=== PATIENT | male | born 1990 | race Caucasian/White ===

== ENCOUNTER 2018-08-19 10:06 | Emergency (ER) | payer OTHER ==
[~2018-08-19] VITALS: Ht 180.3 cm; Wt 70.0 kg
[~2018-08-19 10:06] MED LIST: HYDR-3237 PO
--- NOTE | 2018-08-19 11:30 | NUR ---
PT TO ED FOR WORK RELEASE FOLLOWING SEIZURE 2 DAYS AGO. PT STATES HE WAS SITTING ON THE BED AND WOKE UP LAYING DOWN WITH VERY SCARED AND UPSET. PT REPORTS INCONTINENT OF URINE AT THAT TIME. PT STATES VERY VAGUE MEMORY OF EVENT. PT STATES HX OF SEIZURE IN HOSPITAL FOLLOWING INTENTIONAL OVERDOSE WITH MORPHINE, SLEEPING PILLS AND ALCOHOL. CONNECTED TO MONITORS. VSS. MD TO BEDSIDE FOR ASSESSMENT. AWAITING ORDERS AT THIS TIME.
--- NOTE | 2018-08-19 12:06 | NUR ---
REPORT TAKEN FROM GUSTAVO NOLAND, ASSUMING CARE AT THIS TIME.
[2018-08-19] MEDS ORDERED: CHLORDIAZEPOXIDE 25 MG CAPSULE PO PRN (13:00)
[2018-08-19] MEDS ORDERED: CHLORDIAZEPOXIDE 25 MG CAPSULE ONE (13:09)
[2018-08-19 13:12] VITALS: BP 138/92
--- NOTE | 2018-08-19 13:18 | NUR ---
pt medicated per emar, tolerated well. pt given dc instructions and script. pt educated regarding librium rx. pt educated not to drive today d/t med given. pt a&o, resps even and unlabored, nadn at this time. pt amb to dc desk with steady gait.
== END 2018-08-19 13:18 | disposition home or self-care (01) ==
LOC: ED 13:07
DX: R56.9 Unspecified convulsions (principal); F10.10 Alcohol abuse, uncomplicated; F17.200 Nicotine dependence, unspecified, uncomplicated
CPT/HCPCS: 99283

== ENCOUNTER 2020-05-29 10:05 | Emergency (ER) | payer SELFPAY ==
[~2020-05-29] VITALS: Ht 180.3 cm; Wt 73.0 kg
--- NOTE | 2020-05-29 10:10 | NUR ---
pt BIB [facility] from home c/o RUQ pain with s/o N/v today. pt reports that he has a hx of "liver problems" but does not know what that means. pt R arm is shaking upon admit and pt states that he is shaking from the pain. pt was medicated with 4mg zofran [employer] and refused any narcotric pain meds as he is in recovery for narcotic abuse. pt is in no resp. distress. no family at bedside
--- NOTE | 2020-05-29 10:15 | NUR ---
pt admits to heavy daily ETOH abuse, and that he is trying to "wean himself down". pt reports that he was drinking a "fifth a day" previously and has worked his way down to a pint of ETOH per day and a few beers. pt reports that his last ETOh drink was last nocs Yogesh GEORGE has been to bedside for eval pt is currently refusing ativan at this time
--- NOTE | 2020-05-29 10:20 | NUR ---
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
[2020-05-29 10:28] LABS: BASOPHILS % (AUTO) 0 % (0-1); EOSINOPHILS % (AUTO) 0 % (1-7); LYMPHOCYTES % (AUTO) 8 % (22-44); MEAN CORPUSCULAR HEMOGLOBIN 33.5 pg (27.5-34.5); MEAN CORPUSCULAR HGB CONC 33.9 g/dL (33.2-36.2); MEAN PLATELET VOLUME 8.8 fL (7.4-10.4); MONOCYTES % (AUTO) 5 % (2-9); NEUTROPHILS % (AUTO) 86 % (42-75); PLATELET COUNT 223 x10^3/uL (130-400); RED BLOOD COUNT 4.81 x10^6/uL (4.38-5.82); RED CELL DISTRIBUTION WIDTH 12.9 % (9.4-14.8)
[2020-05-29] MEDS ORDERED: PLEASE ENTER HEIGHT AND WEIGHT MC SCH (10:30)
[2020-05-29] MEDS ORDERED: SODIUM CHLORIDE 0.9% 1,000ML IVBOLUS ONE (10:30)
[2020-05-29 10:40] LABS: ALBUMIN 4.4 g/dL (3.4-5.0); ANION GAP 22 mmol/L (5-15); CALCIUM 9.1 mg/dL (8.5-10.1); CHLORIDE 103 mmol/L (98-107)
[2020-05-29 10:44] LABS: ALANINE AMINOTRANSFERASE 134 U/L (12-78); ALKALINE PHOSPHATASE 111 U/L (45-117); BILIRUBIN,TOTAL 1.2 mg/dL (0.2-1.0); CREATININE 1.05 mg/dL (0.7-1.3); TOTAL PROTEIN 9.3 g/dL (6.4-8.2)
[2020-05-29] MEDS ORDERED: CHLORDIAZEPOXIDE 25 MG CAPSULE ONE (10:57)
[2020-05-29] MEDS ORDERED: CHLORDIAZEPOXIDE 25 MG CAPSULE PO PRN (11:00)
[2020-05-29 11:02] LABS: MD SCAN
--- NOTE | 2020-05-29 11:13 | NUR ---
pt sitting up on gurney in position of comfort. reports that his pain has decreased. sz precautions in place. no vomiting. pt declines librium at this time
--- NOTE | 2020-05-29 11:46 | NUR ---
no changes. no new c/o. pt awaiting US
--- NOTE | 2020-05-29 12:22 | NUR ---
pt resting in position of comfort with eyes closed. updated on POC no sz activity noted report to [facility] Bo for lunch
[2020-05-29 12:25] VITALS: BP 125/81
--- NOTE | 2020-05-29 13:06 | NUR ---
this pt was D/C by another RN
== END 2020-05-29 13:04 | disposition home or self-care (01) ==
LOC: ED 10:41
DX: K29.20 Alcoholic gastritis without bleeding (principal); F41.9 Anxiety disorder, unspecified; R11.2 Nausea with vomiting, unspecified; F10.10 Alcohol abuse, uncomplicated; F17.200 Nicotine dependence, unspecified, uncomplicated; Y90.0 Blood alcohol level of less than 20 mg/100 ml
CPT/HCPCS: 36415; 76700; 80053; 83690; 85025; 96360; 99285; J7030